=== PATIENT | male | born 1950 ===

== ENCOUNTER 2020-09-22 09:30 | Inpatient (IN) | payer OTHER ==
[~2020-09-22] VITALS: Ht 175.3 cm; Wt 68.0 kg
[2020-09-23] MEDS ORDERED: SYNTHROID125 MCG PO (14:33)
[2020-09-23] MEDS ORDERED: NORVASC2.5 M1 PO (14:34)
[2020-09-23] MEDS ORDERED: PROSCAR5 MG PO (14:34)
[2020-09-23] MEDS ORDERED: COZAAR100 MG PO (14:34)
[2020-09-23] MEDS ORDERED: TAMS0.4C PO (14:34)
[2020-09-23] MEDS ORDERED: ALPHAGAN P5 M2 OP (14:35)
[2020-09-29] MEDS ORDERED: OMEGA-3 ACID ETH1 GM (16:24)
[2020-10-06] MEDS ORDERED: HYOSCYAMINE0.125 M1 SL (10:00)
[2020-10-06] MEDS ORDERED: SIMETHICONE125 M1 PO (10:01)
[2020-10-06] MEDS ORDERED: Neurin-Sl Tablet Sl SL (10:01)
[2020-10-06] MEDS ORDERED: INTESTINEX680 M1 PO (10:01)
[2020-10-06] MEDS ORDERED: OXYC1TAB9 PO (10:02)
== END 2020-10-06 11:47 | disposition home or self-care (01) | DRG 330 ==
LOC: O/R 09-29 06:30 → SURH 09-29 06:30
PROVIDERS: Urology; ADMIT Surgery; ATTEND Surgery
PROC: 0DTP4ZZ Resection of Rectum, Percutaneous Endoscopic Approach (ICD-10-PCS; 2020-09-29)
PROC: 0T9B70Z Drainage of Bladder with Drainage Device, Via Natural or Artificial Opening (ICD-10-PCS; 2020-09-29)
PROC: 0DJD8ZZ Inspection of Lower Intestinal Tract, Via Natural or Artificial Opening Endoscopic (ICD-10-PCS; 2020-09-29)
PROC: 0DBN4ZZ Excision of Sigmoid Colon, Percutaneous Endoscopic Approach (ICD-10-PCS; principal; 2020-09-29 15:15)
PROC: 0TQB0ZZ Repair Bladder, Open Approach (ICD-10-PCS; 2020-09-29 15:15)
DX: K57.20 Diverticulitis of large intestine with perforation and abscess without bleeding (principal); N99.72 Accidental puncture and laceration of a genitourinary system organ or structure during other procedure; K56.7 Ileus, unspecified; Y65.8 Other specified misadventures during surgical and medical care; Z53.31 Laparoscopic surgical procedure converted to open procedure; E03.9 Hypothyroidism, unspecified; I10 Essential (primary) hypertension; Z20.822 Contact with and (suspected) exposure to COVID-19

== ENCOUNTER 2020-10-13 11:27 | Outpatient (CLI) | payer OTHER ==
[~2020-10-13 11:27] MED LIST: ALPHAGAN P5 M2 OP; COZAAR100 MG PO; HYOSCYAMINE0.125 M1 SL; INTESTINEX680 M1 PO; NORVASC2.5 M1 PO; Neurin-Sl Tablet Sl SL; OMEGA-3 ACID ETH1 GM; OXYC1TAB9 PO; PROSCAR5 MG PO; SIMETHICONE125 M1 PO; SYNTHROID125 MCG PO; TAMS0.4C PO
== END 2020-10-13 11:32 ==
LOC: TOM 11:27
PROVIDERS: ATTEND Urology
DX: N40.0 Benign prostatic hyperplasia without lower urinary tract symptoms (principal); R31.0 Gross hematuria; N99.81 Other intraoperative complications of genitourinary system

== ENCOUNTER 2021-10-16 15:02 | Inpatient (IN) | payer OTHER ==
[~2021-10-16] VITALS: Ht 175.3 cm; Wt 73.5 kg
[2021-10-23] MEDS ORDERED: OMEGA-3 ACID ETH1 GM (10:44)
== END 2021-10-24 13:20 | disposition home or self-care (01) | DRG 714 ==
LOC: SURH 10-23 08:06 → O/R 10-23 08:06 → SURH 10-23 09:30
PROVIDERS: ADMIT Urology; ATTEND Urology
PROC: 0VT08ZZ Resection of Prostate, Via Natural or Artificial Opening Endoscopic (ICD-10-PCS; principal; 2021-10-23 09:30)
DX: N40.1 Benign prostatic hyperplasia with lower urinary tract symptoms (principal); R33.8 Other retention of urine; R31.0 Gross hematuria; Z20.822 Contact with and (suspected) exposure to COVID-19